=== PATIENT | female | born 1940 | race Caucasian/White ===

== ENCOUNTER 2022-06-15 13:52 | Outpatient (CLI) | payer MEDICARE, SELFPAY ==
[2022-06-15 14:09] LABS: Hematocrit 37.9 % (33.0-51.0); Hemoglobin* 12.4 gm/dL (12.0-16.0); Mean Corpuscular HGB Conc 33 gm/dL (32-36); Mean Corpuscular Hemoglobin 31 pg (26-34); Mean Corpuscular Volume 94 fL (80-100); Platelet Count* 271 K/uL (140-440); Red Blood Count 4.02 m/uL (4.00-5.20); White Blood Count* 6.78 K/uL (4.50-11.00)
[2022-06-15 14:11] LABS: Slide Review Reflex No
[2022-06-15 14:14] LABS: Hemoglobin A1C* 5.5 % (0-5.6)
[2022-06-15 21:50] LABS: Albumin* 4.5 g/dL (3.3-5.0); Chloride* 102 mmol/L (96-114); Sodium* 137 mmol/L (135-149)
[2022-06-15 21:51] LABS: Potassium* 4.3 mmol/L (3.6-5.1)
[2022-06-15 21:52] LABS: Cholesterol* 176 mg/dL (90-199)
[2022-06-15 21:53] LABS: Alanine Aminotransferase* 20 U/L (4-35); Alkaline Phosphatase* 70 U/L (40-150); Aspartate Amino Transferase* 29 U/L (12-35); Bilirubin Total* 0.5 mg/dL (0.1-1.5); Blood Urea Nitrogen* 19 mg/dL (7-30); Carbon Dioxide* 25 mmol/L (20-32); Creatinine* 0.8 mg/dL (0.5-1.5); Estimated Glomerular Filt Rate 74 ml/min; Glucose* 97 mg/dL (60-115); Triglycerides* 90 mg/dL (40-149)
[2022-06-15 21:54] LABS: Calcium* 9.9 mg/dL (8.4-10.6); HDL Cholesterol* 88 mg/dL (>=50); LDL Cholesterol Calculated 70 mg/dL (<100)
== END 2022-06-15 13:53 | disposition home or self-care (01) ==
PROVIDERS: PCP Family Medicine; Visit Provider Physician Assistant Medical
DX: E78.5 Hyperlipidemia, unspecified (principal); F41.9 Anxiety disorder, unspecified; R25.1 Tremor, unspecified; I25.10 Atherosclerotic heart disease of native coronary artery without angina pectoris
CPT/HCPCS: 80053; 80061; 83036; 84443; 85027

== ENCOUNTER 2023-03-06 14:30 | Outpatient (RCR) | payer MEDICARE, SELFPAY ==
--- NOTE | 2022-12-17 14:46 | PT.OPE ---
PT [place] Outpatient Eval PT [facility] Outpatient Eval Start: 12/17/22 09:32 Freq: Status: Active Protocol: Document 12/17/22 14:33 HN (Rec: 12/17/22 14:44 HN [id number]) E-signed By Ying Mcwilliams DPT Physical Therapy Outpatient Evaluation Insurance Information Recert Due Date 02/15/23 Insurance Name Medicare B Medical Diagnosis Sciatica of left side Treating Diagnosis Impaired hip and lumbar range of motion, left hip weakness Referring Darryn Pratt Subjective Subjective Patient is a 82 year old female with complaints of left LE radiating symptoms with insidious onset 1 month prior. Patient reports symptoms are variable and improved initially with cortisone injections but have returned. Patient describes pain as sharp and achey and radiating to down lateral left LE and stops at ankle. Patient denies specific positional preference with flexion/ extension positioning but reports prolonged standing or prolonged sitting increase symptoms. Aggravating factors: prolonged positioning sitting and standing, waking her up early in the morning Easing factors: lying down, pain meds Red flags: denies bladder or bowel changes, denies numbness or tingling in groin, denies recent infections Social history: 3 level home, difficulty with stairs, patient is independent with cooking and cleaning. Lives with Ruddy. Reports decreased activity this winter overall PMH: anxiety, HLD, history of breast cancer, HTN managed with medications, osteopenia, CAD, chronic hip pain, DJD Of cervical spine Pain Comments Current: 06/09 Best: 01/07 Worst 06/09 Date of Last Physician Visit 12/11/22 Current Work Status Retired Occupation Retired Preferred Name [employer] Precautions Treatment Precautions/Contraindications Precautions: HTN/CAD, hx of breast cancer Weight Bearing Status Full Weight Bearing Therapy Limitations/Systems Review Not Limited Objective Range of Motion Lumbar range of motion (% of full range of motion): Flexion: 75 % Extension: 50 % , increased pain Left sidebendin % Right sidebending 100% Hip range of motion (degrees): Flexion: 122 R/ 118L with some increase in pain External rotation: R 36/L 34 Internal rotation: R 26/21 with increased pain Right rotation: 100% Left rotation: 75% with increased pain Strength LE MMT: 5/5 bilaterally except hip abduction 3-/5 on L and 4 /5 on R, hip extension 3/5 on R, 3-/5 on L Palpation Joint mobility: mild hypmobility, no change in symptoms with central PAs Palpation: increased tenderness to palpation along posterior gluteals and piriformis Balance & Gait Patient demonstrate in gait abnormalities Sensation/Reflexes Sensation: intact, no abnormalities Patellar reflex: 2+ normal bilaterally Achilles reflex: 2+, normal bilaterally Other/Pertinent Objective Repeated movements: Repeated extension in prone: symptoms worsens, no change in location Repeated flexion in supine: symptoms worsen, peripheralize Repeated extension in standing : symptoms worsen, no change in location Repeated flexion in standing, symptoms worsen and peripheralize Special test: SLR: positive on the L, negative on R Scour: negative bilaterally ESTEBAN: negative bilaterally FADIR: positive on L, negative on R Laslett cluster: negative Functional Test Performed & Score 5 time sit to stand; 10 seconds Assessment Assessment/Impression Patient is a 82 year old female with complaints of numbness and tingling in left lower extremity. Patient demonstrates decreased lumbar range of motion, decreased LE strength, and increased pain consistent with sciatic nerve irritation with potential contributions from possible left hip OA. These impairments impact the patients transfers , prolonged standing, prolonged sitting ambulation and participation in ADLs and IADLs. Patient will benefit from skilled physical therapy to address the impairments and activity limitations listed above. Primary Functional Limitations transfers, prolonged standing, prolonged sitting ambulation and participation in ADLs and IADLs Plan of Care Rehabilitation Potential Good Rehabilitation Potential Comments Prognostic factors include: acuity of symptoms, first episode of symptoms Physical Therapy Goals Short term goals (4 weeks, ) 1. Patient will report 7/10 pain at worst in order to demonstrate decreased pain and disability related to LLE pain. 2. Patient will demonstrate independence with HEP in order to manage symptoms and condition at home. 3. Patient will tolerate standing 15 minutes with no increase in pain in order to complete cooking related ADLs. intermediate goals:(8 weeks, 02/15) 1. Patient will demonstrate ANNELISE of 20 or less to demonstrate decreased pain and disability related to symptoms. 2. Patient will report less than 4/10 symptoms at worst in left lower extremity to demonstrate decreased pain and disability related to symptoms. 3. Patient will demonstrate 4/ 5 or greater hip strength MMT to demonstrate improved tolerance with standing and walking. 4. Patient will report ascending/descending 3 flights of stairs in home in order to navigate home safely. Coordination/Communication With Referral Source Treatment Plan/Direct Interventions Electrical Stimulation,Gait Training,Heat,Ice/Cold/ Vasopneumatic,Joint Mobilization,Manual Therapy, Neuromuscular Re-ed,Self-Care/ Home Management,Therapeutic Activities,Therapeutic Exercises Frequency/Duration 2x/week for 8 weeks Patient Will Be Discharged From Therapy Completion of LTG(s),Skills Plateau,Independent w/HEP, Independently Progressing Evaluation Billing Untimed Code Treatment Minutes 32 Complexity Moderate Certification Information Initial Certification Date 12/17/22 Ending Certification Date 02/15/23 Provider Signature Shows Agreement With POC & Medical Necessity Physician Signature & Date Requested Please Sign/Date Here Physician Comment/Change : Physician NPI Number #
== END 2023-03-15 15:23 | disposition home or self-care (01) ==
PROVIDERS: PCP Physician Assistant Medical; Visit Provider Physician Assistant Medical
DX: M54.32 Sciatica, left side (principal); Z51.89 Encounter for other specified aftercare
CPT/HCPCS: 97110; 97140; 97162

== ENCOUNTER 2023-04-22 08:51 | Emergency (ER) | payer MEDICARE, SELFPAY ==
[2023-04-22 08:55] VITALS: BP 143/80; PULSE 55; RESP 16; TEMP 36.3; O2SAT 100; BMI 22.3
[2023-04-22] MEDS: 0.9 % SODIUM CHLORIDE 1000 ml 1,000 ML IV (09:47)
--- NOTE | 2023-04-22 09:52 | ED_ITS ---
HPI - Nausea/Vomiting/Diarrhea General Date Seen: 04/22/23 Chief complaint: Diarrhea Stated complaint: diarrhea Time Seen by Provider: 04/22/23 08:56 Source: patient Mode of arrival: ambulatory Limitations: no limitations History of Present Illness HPI Narrative: Patient is a delightful 82-year-old female presents here for evaluation of diarrhea, she has no nausea vomiting, tolerating oral fluids well, the diarrhea is been for the last 6-8 weeks, she has had 6 episodes this morning. Has a history of diarrhea can glean from her chart, with a history of lymphocytic colitis, and did see her physician approximately 2 weeks ago, and was prescribed Lomotil. She did not take any of this, as she was worried about the side effects. She does have a remote history of C diff in the past but has not been on antibiotics denies a fever and has no abdominal pain currently. Her diarrhea is yellowish in nature, no blood within it. No other contacts are sick, she has no travel history. She does have a history of anxiety and she has a wedding this weekend, which she thinks is partially the cause of this increasing diarrhea. She is worried about possible dehydration. MD elicited complaint: diarrhea Onset (ago): week(s) Description of diarrhea: watery and loose Associated nausea: No Associated abdominal pain: No Location of pain: none Quality: cramping Relieving factors: none Related Data Home Medications Medication Instructions Recorded Confirmed ascorbic acid (vitamin C) 500 mg 500 mg PO DAILY 10/30/22 04/22/23 tablet aspirin 81 mg tablet,delayed 81 mg PO QDAY 10/30/22 04/22/23 release calcium carbonate 600 mg calcium 1,500 mg PO BID 10/30/22 04/22/23 (1,500 mg) tablet cholecalciferol (vitamin D3) 25 25 mcg PO DAILY 10/30/22 04/22/23 mcg (1,000 unit) tablet nicotine (polacrilex) 4 mg gum 4 mg buccal Q1-2H PRN 10/30/22 04/22/23 Previous Rx's Medication Instructions Recorded amlodipine 2.5 mg tablet 2.5 mg PO DAILY #90 tabs 06/15/22 atenolol 25 mg tablet 25 mg PO BID #180 tabs 06/15/22 atorvastatin 20 mg tablet 20 mg PO .hs #90 tabs 06/15/22 nitroglycerin 0.4 mg sublingual 0.4 mg sublingual Q5M PRN chest 04/09/23 tablet pain #10 tabs sertraline 50 mg tablet 50 mg PO QDAY #60 tabs 04/09/23 diphenoxylate-atropine 2.5 1 tab PO BID PRN diarrhea #20 tabs 04/17/23 mg-0.025 mg tablet (Lomotil) Allergies Allergy/AdvReac Type Severity Reaction Status Date / Time tetracycline Allergy Mild turned Verified 04/22/23 09:00 tongue black NSAIDS (Non-Steroidal AdvReac Intermediate Bad Verified 04/22/23 09:00 Anti-Inflamma stomach aches lisinopril AdvReac Mild Cough Verified 04/22/23 09:00 doxycycline AdvReac Unknown Verified 04/22/23 09:00 minocycline AdvReac Unknown Verified 04/22/23 09:00 metoprolol AdvReac Mild Nausea Uncoded 04/09/23 10:57 Review of Systems Status of ROS: Reports: 10 or more systems reviewed and unremarkable except as noted in History and below GI: Denies: nausea PFSH PFSH Medical History Sciatica of left side ?M54.32 - Sciatica, left side (ICD-10) Malignant neoplasm of breast ?C50.919 - Malignant neoplasm of unspecified site of unspecified female breast (ICD-10) History of coronary angiogram (08/27/11) ?Z98.890 - Other specified postprocedural states (ICD-10) Colitis due to Clostridium difficile ?A04.72 - Enterocolitis due to Clostridium difficile, not specified as recurrent (ICD-10) Surgical History History of tonsillectomy (08/27/11) ?Z90.89 - Acquired absence of other organs (ICD-10) History of lumpectomy of right breast ?Z98.890 - Other specified postprocedural states (ICD-10) History of left inguinal hernia repair (08/27/11) ?Z98.890 - Other specified postprocedural states (ICD-10) ?Z87.19 - Personal history of other diseases of the digestive system (ICD-10) History of hysterectomy (08/27/11) ?Z90.710 - Acquired absence of both cervix and uterus (ICD-10) History of colonoscopy ?Z98.890 - Other specified postprocedural states (ICD-10) Family History Father Coronary artery disease Mother Stomach cancer Other Gout Social History Narrative: Smoker 1/2 pack per day Smoking Status: Former smoker Do you use any of these nicotine containing products: None How often do you have a drink containing alcohol: 4 or more times a week How many standard drinks containing alcohol do you have on a typical day: 1 or 2 How often do you have six or more drinks on one occasion: Never AUDIT-C Alcohol total score: 4 Non-prescribed substance use: denies use Little interest or pleasure in doing things: several days Feeling down, depressed, or hopeless: several days Exam Narrative: Exam Narrative: Patient is speaking normally, no problem with slurring words, oriented x3. Head eyes ears nose and throat exam show equal pupils, no scleral icterus, extraocular muscles are normal, no facial droop, speech is normal, trachea normal and midline. Thyroid normal midline palpable not enlarged. Chest shows symmetrical rise bilaterally, normal auscultation with no wheezes, no increased work of breathing, no overt bruising or lesions seen, no tenderness is noted on auscultation. Heart sounds normal with no S3-S4 no murmurs clicks or gallops. Abdomen shows no obvious masses or hepatosplenomegaly, no organomegaly, bowel sounds are normal in all quadrants. No tenderness is noted also in all quadrants. Upper and lower extremities show normal power, normal range of motion, pulses are normal, sensations normal, fine motor movements are normal, pelvis is stable to rocking. Skin shows no rashes, petechiae or eccymosis. Const: Vital Signs, click to edit/add: Vital Signs - 24 hr 04/22/23 08:55 04/22/23 11:06 Temperature 97.4 F L 97.8 F Pulse Rate [Pulse Oximeter] 55 L 68 Respiratory Rate 16 18 Blood Pressure [Ri ght Upper Arm] 143/80 H 161/86 H Pulse Oximetry 100 91 Oxygen Delivery Me thod Room Air Room Air Course Course Hospital Course: Patient received IV fluids here, she had no further episodes of diarrhea in fact could leave us a sample for C diff, I think an outpatient evaluation sample is appropriate here. She really wants to leave, and she seems much improved. Fol low-up with primary care, return as needed. Vital Signs Vital signs: Initial Vital Signs Temperature 97.4 F L 04/22/23 08:55 Temperature Source Temporal Artery Scan 04/22/23 08:55 Pulse Rate 55 L 04/22/23 08:55 Respiratory Rate 16 04/22/23 08:55 Blood Pressure 143/80 H 04/22/23 08:55 Blood Pressure Mean 101 04/22/23 08:55 Blood Pressure Position Sitting 04/22/23 08:55 Pulse Oximetry 100 04/22/23 08:55 Oxygen Delivery Method Room Air 04/22/23 08:55 Vital Signs Temperature 97.4 F L 04/22/23 08:55 Pulse Rate 55 L 04/22/23 08:55 Respiratory Rate 16 04/22/23 08:55 Blood Pressure 143/80 H 04/22/23 08:55 Pulse Oximetry 100 04/22/23 08:55 Oxygen Delivery Method Room Air 04/22/23 08:55 Temperature 97.8 F 04/22/23 11:06 Pulse Rate 68 04/22/23 11:06 Respiratory Rate 18 04/22/23 11:06 Blood Pressure 161/86 H 04/22/23 11:06 Pulse Oximetry 91 04/22/23 11:06 Oxygen Delivery Method Room Air 04/22/23 11:06 MDM - Nausea/Vomiting/Diarrhea MDM Narrative Medical decision making narrative: Differential diagnosis considered include but not limited to viral ga stroenteritis, food poisoning, bowel obstruction, Clostridium difficile, Campylobacter, Shigella, rotavirus, medication side effects, dysentery, diverticulitis, Crohn's disease and colitis Medical Records Attestation: I reviewed the patient's medical records. Lab Data Attestation: I reviewed the patient's lab results. Labs: Lab Results 04/22/23 04/22/23 Range/Units 09:24 09:45 WBC 8.64 (4.50-11.00) K/uL RBC 4.35 (4.00-5.20) m/uL Hgb 13.2 (12.0-16.0) gm/dL Hct 40.7 (33.0-51.0) % MCV 94 (80-100) fL MCH 30 (26-34) pg MCHC 32 (32-36) gm/dL RDW Coeff of [place] 11.9 (11.5-15.5) % Plt Count 284 (140-440) K/uL Neut % (Auto) 79.5 H (42.0-72.0) % Lymph % (Auto) 11.5 L (20-44) % [place] % (Auto) 7.1 (0.0-11.0) % Eos % (Auto) 1.0 (0.0-7.0) % Baso % (Auto) 0.8 (0.0-3.0) % Neut # (Auto) 6.90 (1.7-7.0) K/uL Lymph # (Auto) 1.00 (0.90-2.90) K/uL [place] # (Auto) 0.60 (0.00-0.90) K/UL Eos # (Auto) 0.09 (0.00-0.50) K/uL Baso # (Auto) 0.07 (0.00-0.30) K/uL Abs Immat Gran (auto) 0.01 (0.00-0.30) K/uL Imm/Tot Granulo (auto) 0.1 % Sodium 132 L (135-149) mmol/L Potassium 4.2 (3.6-5.1) mmol/L Chloride 100 (96-114) mmol/L Carbon Dioxide 24 (20-32) mmol/L BUN 15 (7-30) mg/dL Creatinine 0.7 (0.5-1.5) mg/dL Estimated Creat Clear 37.45 Estimated GFR 86 ml/min Glucose 106 (60-115) mg/dL Calcium 10.0 (8.4-10.6) mg/dL C-Reactive Protein < 0.5 L (0.5-1.0) mg/dL Urine Color Yellow (Yellow) Urine Appearance Clear (Clear) Urine pH 5.5 (5.0-8.5) Ur Specific [place] 1.010 (1.000-1.030) Urine Protein Negative (Negative) Urine Glucose (UA) Negative (Negative) Urine Ketones Negative (Negative) Urine Blood Negative (Negative) Urine Nitrite Negative (Negative) Urine Bilirubin Negative (Negative) Urine Urobilinogen 0.2 (0.2-1.0) Ur Leukocyte Esterase 1+ A (Negative) Urine RBC 0-2 (0-2) Urine WBC 2-5 (0-5) Ur Squamous Epith Cells None (None-Few) Urine Bacteria Few A (None) Discharge Plan Discharge Clinical Impression: Anxiety, Diarrhea Patient Disposition: Home, Self-Care Condition: Stable Instructions: Nutrition Tips for Relief of Diarrhea (ED), Anxiety (ED) Additional Instructions: Home rest continue with lots of yogurt, fluids, consideration of use of the medication your doctor provided also. I think if you have had no diarrhea here it is unlikely that this is related to infection, you can consider doing outpatient bring back a sample to be 100%. Return as needed. Prescriptions: No Action nitroglycerin 0.4 mg tablet, sublingual 0.4 mg sublingual Q5M PRN (Reason: chest pain) Qty: 10 0RF Rx Instructions: do not exceed 3 doses per episode sertraline 50 mg tablet 50 mg PO QDAY Qty: 60 0RF Rx Instructions: 1/2 tablet daily for 1 week then increase to 1 tablet daily amlodipine 2.5 mg tablet 2.5 mg PO DAILY Qty: 90 3RF atenolol 25 mg tablet 25 mg PO BID Qty: 180 3RF atorvastatin 20 mg tablet 20 mg PO .hs Qty: 90 3RF aspirin 81 mg tablet,delayed release (DR/EC) 81 mg PO QDAY calcium carbonate 600 mg calcium (1,500 mg) tablet 1,500 mg PO BID ascorbic acid (vitamin C) 500 mg tablet 500 mg PO DAILY cholecalciferol (vitamin D3) 25 mcg (1,000 unit) tablet 25 mcg PO DAILY nicotine (polacrilex) 4 mg gum 4 mg buccal Q1-2H PRN diphenoxylate-atropine [Lomotil] 2.5-0.025 mg tablet 1 tab PO BID PRN (Reason: diarrhea) Qty: 20 0RF Follow Up/Referrals: Darryn Pierce PA-C [Primary Care Provider] - Stand Alone Forms: [facility] Info Instructions
[2023-04-22 09:59] LABS: Basophils Absolute Auto 0.07 K/uL (0.00-0.30); Basophils Percent Auto 0.8 % (0.0-3.0); Eosinophils Absolute Auto 0.09 K/uL (0.00-0.50); Hematocrit 40.7 % (33.0-51.0); Hemoglobin* 13.2 gm/dL (12.0-16.0); Immature Granulocytes Abs Auto 0.01 K/uL (0.00-0.30); Immature Granulocytes Pct Auto 0.1 %; Lymphocytes Percent Auto 11.5 % (20-44); Mean Corpuscular HGB Conc 32 gm/dL (32-36); Mean Corpuscular Hemoglobin 30 pg (26-34); Mean Corpuscular Volume 94 fL (80-100); Monocytes Percent Auto 7.1 % (0.0-11.0); Neutrophils Percent Auto 79.5 % (42.0-72.0); Platelet Count* 284 K/uL (140-440); RDW Coefficient of Variation % 11.9 % (11.5-15.5); Red Blood Count 4.35 m/uL (4.00-5.20); White Blood Count* 8.64 K/uL (4.50-11.00)
[2023-04-22 10:00] LABS: Slide Review Reflex No
[2023-04-22 10:03] LABS: Appearance Urine Clear (Clear); Bilirubin Urine Negative (Negative); Blood Urine Negative (Negative); Color Urine Yellow (Yellow); Glucose Urine Negative (Negative); Ketones Urine Negative (Negative); Leukocyte Esterase Urine 1+ (Negative); Nitrite Urine Negative (Negative); Protein Urine Negative (Negative); Urobilinogen Urine 0.2 (0.2-1.0); pH Urine 5.5 (5.0-8.5)
[2023-04-22 10:13] LABS: Bacteria Urine Few; RBC Urine 0-2 (0-2)
[2023-04-22 10:19] LABS: Chloride* 100 mmol/L (96-114); Potassium* 4.2 mmol/L (3.6-5.1); Sodium* 132 mmol/L (135-149)
[2023-04-22 10:22] LABS: Creatinine* 0.7 mg/dL (0.5-1.5); Est. Creatinine Clearance* 37.45; Estimated Glomerular Filt Rate 86 ml/min
[2023-04-22 10:23] LABS: Blood Urea Nitrogen* 15 mg/dL (7-30); Carbon Dioxide* 24 mmol/L (20-32); Glucose* 106 mg/dL (60-115)
[2023-04-22 10:27] LABS: C Reactive Protein* < 0.5 mg/dL (0.5-1.0)
[2023-04-22 11:06] VITALS: BP 161/86; PULSE 68; RESP 18; TEMP 36.6; O2SAT 91
[2023-04-22 17:05] LABS: C.Difficile Negative (Negative); CDIFFEPI 027 PRESUMPTIVE NEGATIVE (Negative)
== END 2023-04-22 12:21 | disposition home or self-care (01) ==
PROVIDERS: Emergency Provider Family Medicine; PCP Physician Assistant Medical
DX: F41.9 Anxiety disorder, unspecified (principal); R19.7 Diarrhea, unspecified
CPT/HCPCS: 36415; 80048; 81001; 85025; 86140; 87086; 87186; 87493; 96360; 99283; 99284; J7030

== ENCOUNTER 2023-06-05 12:34 | Outpatient (CLI) | payer MEDICARE, SELFPAY ==
--- NOTE | 2023-06-05 13:00 | CRLHL7_ITS ---
For Patients: As a result of the Century Cures Act, medical imaging exams and procedure reports are released immediately into your electronic medical record. You may view this report before your referring provider. If you have questions, please contact your health care provider. DXA BONE MINERAL DENSITY STUDY Current height (in): 64.0. Weight (lb): 130.0. Menopause age: 48. Ethnicity: White. Reason for exam: Asymptomatic menopausal state. 1. Have you had a previous hip or vertebral fracture? No. 2. Have you had any fractures during your adult life which did not result from significant trauma (e.g., auto accident)? No. 3. Did either of your parents have a hip fracture? No. 4. Do you smoke? No. 5. Have you ever taken Glucocorticoids? No. 6. Do you have rheumatoid arthritis? No. 7. Do you have secondary osteoporosis? No. 8. Do you drink 3 or more alcoholic drinks per day? No. 9. Are you being treated for osteoporosis? No. 10. Have you ever taken any of the following medications: Actonel, Evista, Fosamax, Miacalcin, Reclast, Boniva, Forteo, HRT (i.e. estrogen/hormone therapy), Protelos, Prolia, Vitamin D, Calcium, other ??? please specify. ANSWER: Yes, vitamin D, vitamin C, B12. 11. Do you have any of the following medical conditions: Anorexia or bulimia, asthma or emphysema, end stage renal disease, hyperparathyroidism, any seizure disorders, cancer, inflammatory bowel diseases, hysterectomy, other ??? please specify. ANSWER: Yes, cancer, inflammatory bowel disease, hysterectomy. 12. What was your maximum height (inches)? 66. 13. Do you perform weight bearing exercise regularly? No. 14. Do you regularly consume dairy products? Yes. 15. Do you drink caffeinated beverages? Yes. 16. At what age did your period start? 13. 17. Are you premenopausal? No. 18. How many full-term pregnancies have you had? 3. 19. Have you ever missed your period for more than 6 months in a row (not including or menopause)? No. TECHNIQUE: Bone mineral density study was performed using the [employer]. FINDINGS: The results of the study expressed as bone mineral density (BMD) are as follows: Lumbar spine L1 to L4: BMD: 0.960 g/cm2. T-score: -0.8. Z-score: 2.0. Neck Left: BMD: 0.525 g/cm2. T-score: -2.9. Z-score: -0.5. Right: BMD: 0.574 g/cm2. T-score: -2.5. Z-score: -0.0. Total Left: BMD: 0.689 g/cm2. T-score: -2.1. Z-score: 0.2. Right: BMD: 0.633 g/cm2. T-score: -2.5. Z-score: -0.3. IMPRESSION: Osteoporosis. *Comparison exams done prior to 02/2020 were performed on different unit, [employer]. COMPARISON: Compared with scan of , the bone mineral density has decreased by 9.1 percent at the spine and increased by 2.5 percent at the hip. Jeff Devlin M.D. Diagnostic Radiologist [email or web address] Transcribed: 9:51 am DW/Dictated by: Jeff Devlin MD @ 06/06/2023 9:14:00 AM (Electronically Signed)
== END 2023-06-05 12:35 | disposition home or self-care (01) ==
LOC: RAD 12:35
PROVIDERS: PCP Physician Assistant Medical; Visit Provider Physician Assistant Medical
DX: Z78.0 Asymptomatic menopausal state (principal); M81.0 Age-related osteoporosis without current pathological fracture
CPT/HCPCS: 77080

== ENCOUNTER 2023-06-26 11:29 | Outpatient (CLI) | payer MEDICARE, SELFPAY | END 2023-06-26 11:30 | disposition home or self-care (01) | PROVIDERS: PCP Physician Assistant Medical; Visit Provider Physician Assistant Medical | DX: I10 Essential (primary) hypertension (principal); E78.5 Hyperlipidemia, unspecified; I25.10 Atherosclerotic heart disease of native coronary artery without angina pectoris; F41.9 Anxiety disorder, unspecified | CPT/HCPCS: 80053; 80061; 84443 ==

== ENCOUNTER 2024-05-13 13:03 | Outpatient (CLI) | payer MEDICARE, SELFPAY ==
--- OUTSIDE RECORDS SUMMARY | 2024-05-13 13:05 | XMS_ITS | Clinical Summary ---
Author Organization 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 Active SIMVASTATIN OR Take by mouth. Active Immunizations Name Administration Dates Next Due Tdap (7 years and older) 03/27/2013 Social History Tobacco Use Types Packs/Day Years Used Date Smoking Tobacco: Never Assessed Sex and Gender Information Value Date Recorded Sex Assigned at Not on file Gender Identity Not on file Sexual Orientation Not on file Last Filed Vital Signs Vital Sign Reading Time Taken Comments Blood Pressure 149/80 03/27/2013 9:51 PM CDT Pulse 72 03/27/2013 9:51 PM CDT Temperature 36.2 ??C (97.1 ??F) 03/27/2013 9:51 PM CD T Respiratory Rate 16 03/27/2013 9:51 PM CDT Oxygen Saturation - - Inhaled Oxygen Concentration - - Weight - - Height - - Body Mass Index - - Plan of Treatment Not on file Care Teams Jumpbasting Lining Baster Relationship Specialty Start Date End Date Elsewhere, Pcp PCP - General 03/27/13
--- OUTSIDE RECORDS SUMMARY | 2024-05-13 13:05 | XMS_ITS | Clinical Summary ---
Author Organization [facility] Address [place], [place] [address] Care Team Providers Care Supervisor Coremaker Name Role Phone Darryn Pierce Primary Care Provider [phone] Allergies Active Allergy Reactions Criticality Noted Date Comments Doxycycline Tongue Swelling 01/02/2006 Tongue changed color didn't swell Egg Derived GI Upset High 04/26/2020 Lisinopril Cough Low 04/26/2020 Metoprolol Nausea Only Low 04/26/2020 Minocycline Tongue Swelling 01/02/2006 Tongue changed color but didn't swell Nsaids (Non-Steroidal Anti-Inflammatory Drug) GI Upset High 04/26/2020 Penicillins 01/02/2006 Tetracycline Other - Describe In Comment Field Low 04/26/2020 Medications Medication Sig Dispensed Refills Start Date End Date Status nitroglycerin (NITROSTAT) 0.[address] 1 tablet under the tongue every 5 minutes if needed for Chest Pain. 1 Bottle 0 12/05/2010 Active aspirin 81 mg tablet Take 1 tablet by mouth once daily with a meal. 0 12/05/2010 Active calcium carbonate (CALCIUM 600) 600 mg calcium (1,500 mg) tablet Take 1 tablet by mouth 2 times daily with meals. 0 11/26/2017 Active ascorbic acid, vitamin C, (VITAMIN C) 500 mg tablet Take 1 tablet by mouth once daily. 0 11/26/2017 Active cholecalciferol (VITAMIN D) 1,000 unit capsule Take 1 capsule by mouth once daily. 0 11/26/2017 Active atenolol (TENORMIN) 25 mg tablet Take 1 tablet by mouth 2 times daily. 0 08/25/2018 Active amLODIPine (NORVASC) 2.5 mg tablet Take 1 tablet by mouth once daily. 0 08/25/2018 Active SIMVASTATIN ORAL Take by mouth. Acti ve oxyCODONE (ROXICODONE) 5 mg immediate release tablet TAKE 1 TAB BY MOUTH EVERY 4 HOURS NEEDED FOR SEVERE PAIN. *NOT COVERED 12/11/2022 Active diphenoxylate-atropin e, 2.5-0.025 mg, (LOMOTIL) 2.5-0.025 mg tablet 1 Tablet 2 times daily if needed for Diarrhea. 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 04/11/2017 Hyperopia of right eye with astigmatism and pres byopia 04/11/2017 Dry eye syndrome 10/08/2008 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 Immunizations Name Administration Dates Next Due COVID-19 vaccine ([facility] [employer] 30mcg/0.3mL) PF, MDV 08/07/2021,12/03/2020,11/12/2020 Influenza, High-dose Inactivated 07/20/2019,07/31 Influenza, High-dose Quadriv alent Inactivated 08/08/2022,07/19/2020 Influenza, IIV4 07/11/2017 Influenza, Inactivated AIIV4 (Age 65+ Years) Preserv Free 07/30/2021 Pneumococcal Poly,23-Valent (Pneumovax) 08/27/20 11 Pneumococcal conj 13-Valent (Prevnar 13) 016 Tdap 04/13/2013,03/27/2013 Zoster (Zostavax-ZVL, live) 08/16/2009 Family History Medical History Relation Name Comments Other Maternal Uncle macular degen eration Genetic Other cancer mother, heart disease mother, brother and father Relation Name Status Comments Maternal Uncle Other Social History Tobacco Use Types Packs/Day Years Used Date Smoking Tobacco: Former Cigarettes 0.5 67.4 0 [birth year]/30/1954 - 02/27/2022 Smokeless Tobacco: Never Tobacco Cessation:Counseling Given: No Comments:trying to quit - nicotine gum/patch(05/11/20) Alcohol Use Standard Drinks/Week Comments Not Currently 0 (1 standard drink = 0.6 oz pur e alcohol) Social Connections Answer Date Recorded Frequency of Communication with Friends and Fami ly Not on file 02/11/2024 Financial Resource Strain Answer Date R ecorded Difficulty of Paying Living Expenses 3 02/04/2023 Difficulty of Paying Living Expenses Not on file 02/04/2023 Food Insecurity Answer Date Recorded Worried About Running Out of Food in the Last Ye ar 1 02/04/2023 Transportation Needs Answer Date Record ed Lack of Transportation (Medical) 1 02/04/2023 Housing Stability Answer Date Recorded Unable to Pay for Housing in the Last Year 1 02/04/2023 Sex and Gender Information Value Date Recorded Sex Assigned at Not on file Gender Identity Not on file Sexual Orientation Not on file Obstetrics History Last Filed Vital Signs Vital Sign Reading Time Taken Comments Blood Pressure 132/68 05/30/2023 1:23 PM CDT Pulse 66 05/30/2023 1:23 PM CDT Temperature 37.1 ??C (98.8 ??F) 09/21/2006 11:[address] Respiratory Rate - - Oxygen Saturation 94% 05/30/2023 1:23 PM CDT Inhaled Oxygen Concentration - - Weight 60 kg (132 lb 4.8 oz) 05/30/2023 1:23 PM CDT Height 162.6 cm (5' 4) 02/04/2023 9:29 AM CDT Body Mass Index 22.71 02/04/2023 9:29 AM CDT Plan of Treatment Health Maintenance Due Date Last Done Comments Depression screening for age 12+ 1952 DEXA/DXA scan for age 65+ 2005 Medicare Wellness for age 65+ 2005 Zoster (shingles) series for age 50+ (2 of 3) 10/11/2009 08/16/2009 Tetanus booster 04/13/2023 04/13/2013, 03/27/2013 COVID-19 vaccine series ( season) 2023 08/07/2021, 12/03/2020, 11/12/2020 BMI (ht and wt on same day) for age 18+ 02/05/2024 02/04/2023, 01/03/2023, 11/26/2017 Influenza for age 65+ 05/31/2024 08/08/2022 , 07/30/2021, 07/19/2020, Additional history exists Tdap Completed 04/13/2013, 03/27/2013 Pneumococcal series for age 65+ Completed 6, 08/27/2011 Care Teams Supervisor Coremaker Relationship Specialty Start Date End Date Darryn Pierce PA [address] [id number] PCP - General 05/30/23
--- NOTE | 2024-05-13 13:20 | CRLHL7_ITS ---
For Patients: As a result of the Century Cures Act, medical imaging exams and procedure reports are released immediately into your electronic medical record. You may view this report before your referring provider. If you have questions, please contact your health care provider. BILATERAL SCREENING MAMMOGRAM WITH COMPUTER-AIDED DETECTION AND TOMOSYNTHESIS TECHNIQUE: CC and MLO views were obtained. These mammographic images have been obtained using full-field digital technique. These mammographic images were interpreted with the benefit of computer-aided detection. Breast Tomosynthesis was used in this interpretation. COMPARISON FILM: 02/07/23, 11/23/21, 09/08/20. FINDINGS: The breasts are heterogeneously dense, which may obscure small masses IMPRESSION: There is no radiographic evidence for malignancy. ASSESSMENT: BI-RADS Category 2: Benign RECOMMENDATION: Routine screening mammogram in 1 year. A lay language report of this examination will be provided to the patient. Jeff Devlin M.D. Diagnostic Radiologist [email or web address] Transcribed: 6:41 p.jay silva/Dictated by: Jeff Devlin MD @ 05/14/2024 11:03:00 AM (Electronically Signed)
== END 2024-05-13 13:04 | disposition home or self-care (01) ==
LOC: MAMMO 13:04
PROVIDERS: PCP Physician Assistant Medical; Visit Provider Physician Assistant Medical
DX: Z12.31 Encounter for screening mammogram for malignant neoplasm of breast (principal); R92.2 Inconclusive mammogram
CPT/HCPCS: 77063; 77067

== ENCOUNTER 2024-07-01 10:55 | Outpatient (CLI) | payer MEDICARE, SELFPAY | END 2024-07-01 10:56 | disposition home or self-care (01) | PROVIDERS: PCP Physician Assistant Medical; Visit Provider Physician Assistant Medical | DX: I10 Essential (primary) hypertension (principal); E78.2 Mixed hyperlipidemia; F41.9 Anxiety disorder, unspecified; I25.10 Atherosclerotic heart disease of native coronary artery without angina pectoris | CPT/HCPCS: 80053; 80061; 84443 ==

== ENCOUNTER 2024-10-19 10:11 | Outpatient (RCR) | payer MEDICARE, SELFPAY | END 2025-02-16 23:59 | disposition home or self-care (01) | PROVIDERS: PCP Physician Assistant Medical; Visit Provider Physician Assistant Medical | DX: R26.81 Unsteadiness on feet (principal); R42 Dizziness and giddiness; Z51.89 Encounter for other specified aftercare ==

== ENCOUNTER 2024-10-23 09:38 | Outpatient (CLI) | payer MEDICARE, SELFPAY | END 2024-10-23 09:39 | disposition home or self-care (01) | LOC: RAD 09:39 | PROVIDERS: PCP Physician Assistant Medical; Visit Provider Physician Assistant Medical | DX: R06.02 Shortness of breath (principal); I07.1 Rheumatic tricuspid insufficiency | CPT/HCPCS: 93306 ==

== ENCOUNTER 2025-09-09 11:21 | Outpatient (CLI) | payer MEDICARE, SELFPAY | END 2025-09-09 11:22 | disposition home or self-care (01) | PROVIDERS: PCP Physician Assistant Medical; Visit Provider Physician Assistant Medical | DX: I10 Essential (primary) hypertension (principal); E78.2 Mixed hyperlipidemia | CPT/HCPCS: 80053; 80061; 84443 ==